=== PATIENT | female | born 1950 | race Caucasian/White ===

== ENCOUNTER → 2016-11-04 | Outpatient (CLI) | payer MEDICARE, BC, OTHER ==
--- NOTE | 2016-11-04 16:39 | REP ---
BILATERAL MAMMOGRAM WITH DIAGNOSTIC MAMMOGRAM LEFT BREAST AND LEFT BREAST ULTRASOUND: Bilateral mammography performed in the MLO and CC projections. Reportedly there is a palpable abnormality in the upper outer quadrant of the left breast, which is marked on the skin with a triangular marker. Additional spot compression views are obtained. Comparison made with prior studies, the most recent of which is 09/29/2015. Parenchymal pattern is unchanged with mild scattered fibroglandular tissue. There is no new mass, architectural distortion or clustered microcalcifications. Real-time sonographic evaluation of the left breast performed at the site of the reported palpable abnormality. No cystic or solid nodule is seen. IMPRESSION: ACR 2 benign. No mass or clustered microcalcifications. There is no mammographic or sonographic evidence of a mass at the site of the reported palpable abnormality in the upper outer quadrant of the left breast. Negative mammogram and ultrasound should not deter biopsy if there is a clinically suspicious palpable mass present. Clinical correlation and followup recommended. Recommend followup mammogram in one year. BI-RADS/ACR category 2 mammogram. Benign finding(s). Routine annual screening mammography (for women over age 40). This mammogram was interpreted with the aid of an FDA-approved computer-aided detection system. The patient states she/he had a clinical breast exam in October 2016. The patient letter being requested is M2. Signed by Ata Schaffer MD 11/05/2016 01:23 P
== END ==
LOC: M RAD 14:46
PROVIDERS: ATTEND Nurse Practitioner Women's Health
DX: N63 Unspecified lump in breast (principal); Z12.4 Encounter for screening for malignant neoplasm of cervix
CPT/HCPCS: 76642; G0101; G0204

== ENCOUNTER → 2016-11-29 | Outpatient (CLI) | payer MEDICARE, BC, OTHER | LOC: M WUC 14:08 | PROVIDERS: ATTEND Psychiatry & Neurology Neurology | DX: E11.9 Type 2 diabetes mellitus without complications (principal) ==

== ENCOUNTER → 2017-11-15 | Outpatient (CLI) | payer MEDICARE, BC | LOC: M WHC 14:25 | DX: Z12.31 Encounter for screening mammogram for malignant neoplasm of breast (principal); Z78.0 Asymptomatic menopausal state; Z92.89 Personal history of other medical treatment; Z80.3 Family history of malignant neoplasm of breast | CPT/HCPCS: 77067 ==

== ENCOUNTER → 2018-01-24 | Outpatient (REF) | payer MEDICARE, OTHER ==
[2018-01-24 17:48] LABS: APPEARANCE, URINE CLEAR (CLEAR); BACTERIA, URINE AUTO NEGATIVE (NEGATIVE); BILIRUBIN, URINE AUTO NEGATIVE (NEGATIVE); BLOOD, URINE BLOOD 2+ (NEGATIVE); COLOR, URINE YELLOW (YELLOW); GLUCOSE, URINE (UA) AUTO NEGATIVE (NEGATIVE); KETONE, URINE AUTO NEGATIVE (NEGATIVE); LEUKOCYTE ESTERASE, URINE AUTO NEGATIVE (NEGATIVE); NITRITE, URINE AUTO NEGATIVE (NEGATIVE); PROTEIN, URINE AUTO NEGATIVE (NEGATIVE); RBC, URINE AUTO 6 /HPF (0-3); SPECIFIC GRAVITY URINE AUTO 1.008 (1.002-1.035); SQUAMOUS EPITHELIAL CELL UR AU 0 /HPF (0-6); UROBILINOGEN, URINE AUTO 0.2 mg/dL (0.0-2.0); WBC, URINE AUTO 0 /HPF (0-3)
== END ==
LOC: M SMT 16:49
DX: R31.9 Hematuria, unspecified (principal)
CPT/HCPCS: 81001

== ENCOUNTER → 2018-02-08 | Outpatient (CLI) | payer MEDICARE, OTHER ==
[2018-02-08 17:21] LABS: ANION GAP 8 MEQ/L (8-16); BLOOD UREA NITROGEN 18 MG/DL (7-18); CALCIUM LEVEL 8.8 MG/DL (8.8-10.2); CARBON DIOXIDE LEVEL 27 MEQ/L (21-32); CHLORIDE LEVEL 107 MEQ/L (98-107); CREATININE FOR GFR 0.79 MG/DL (0.55-1.30); GLOMERULAR FILTRATION RATE > 60.0 (>45); GLUCOSE, FASTING 97 MG/DL (70-100); POTASSIUM SERUM 4.4 MEQ/L (3.5-5.1); SODIUM LEVEL 142 MEQ/L (136-145)
== END ==
LOC: M WUC 11:22
DX: R31.9 Hematuria, unspecified (principal)
CPT/HCPCS: 80048

== ENCOUNTER → 2018-12-08 | Outpatient (CLI) | payer MEDICARE, BC ==
--- NOTE | 2018-12-08 15:46 | REPMRS ---
Patient History The patient states she had a clinical breast exam in 11/2018. Family history of breast cancer at age 50 or over in maternal aunt, breast cancer at age 50 or over in mother, breast cancer in maternal aunt. Benign stereotatic breast biopsy of the left breast, 2002. 3D TOMOSYNTHESIS WAS PERFORMED. Digital Woman Screen Mammo: December 08, 2018 - Exam #: [id number] Bilateral CC and MLO view(s) were taken. Technologist: Yelena Gonzalez, Technologist Prior study comparison: November 15, 2017, digital woman screen mammo performed at [facility]. November 04, 2016, digital mammo diagnostic bilateral, performed at [facility]. FINDINGS: There are scattered fibroglandular densities. There has been no change in the appearance of the mammogram from the prior studies. There is a mild amount of residual fibroglandular tissue which is fairly symmetric. There is no interval development of dominant mass, architectural distortion, or clustered microcalcification suggestive of malignancy. Assessment: BI-RADS/ACR category 1 mammogram. Negative Mammogram. Recommendation Routine screening mammogram in 1 year (for women over age 40). This mammogram was interpreted with the aid of an FDA-approved computer-aided dectection system. Electronically Signed By: Ata Schaffer MD 12/08/18 [id number]
== END ==
LOC: M WHC 14:08
PROVIDERS: ATTEND Nurse Practitioner Women's Health
DX: Z12.31 Encounter for screening mammogram for malignant neoplasm of breast (principal); Z80.3 Family history of malignant neoplasm of breast; Z86.018 Personal history of other benign neoplasm

== ENCOUNTER → 2019-12-11 | Outpatient (CLI) | payer MEDICARE, BC ==
--- NOTE | 2019-12-11 16:22 | REPMRS ---
Patient History The patient states she had a clinical breast exam in November 2019. Family history of breast cancer at age 50 or over in maternal aunt, breast cancer at age 50 or over in mother, breast cancer in maternal aunt. Benign stereotatic breast biopsy of the left breast, 2002. Digital Woman Screen Mammo: December 11, 2019 - Exam #: [id number] Bilateral CC and MLO view(s) were taken. Technologist: Louise Nolan Technologist Prior study comparison: December 08, 2018, bilateral digital woman screen mammo performed at [facility]. November 15, 2017, digital woman screen mammo performed at [facility]. November 04, 2016, digital mammo diagnostic bilateral, performed at [facility]. FINDINGS: There are scattered fibroglandular densities. There has been no change in the appearance of the mammogram from the prior studies. There is a mild amount of scattered fibroglandular density which is fairly symmetric. There is no interval development of dominant mass, architectural distortion, or grouped microcalcification suggestive of malignancy. 3-D tomosynthesis shows no additional findings. Assessment: BI-RADS/ACR category 1 mammogram. Negative Mammogram. Recommendation Routine screening mammogram of both breasts in 1 year (for women over age 40). This patient's Lifetime Breast Cancer Risk is estimated at 9.1 %. This mammogram was interpreted with the aid of an FDA-approved computer-aided dectection system. Electronically Signed By: Nilson Plascencia MD 12/11/19 [id number]
== END ==
LOC: M WHC 15:05
PROVIDERS: ATTEND Nurse Practitioner Women's Health
DX: Z12.31 Encounter for screening mammogram for malignant neoplasm of breast (principal); Z80.3 Family history of malignant neoplasm of breast; Z86.018 Personal history of other benign neoplasm
CPT/HCPCS: 77063; 77067; G0463

== ENCOUNTER → 2020-12-11 | Outpatient (CLI) | payer MEDICARE, BC ==
--- NOTE | 2020-12-11 14:58 | REPMRS ---
Patient History The patient states she had a clinical breast exam in November. Patient is postmenopausal. Family history of breast cancer at age 50 or over in maternal aunt, breast cancer at age 50 or over in mother, breast cancer in maternal aunt, breast cancer at age 69 in sister. Benign stereotatic breast biopsy of the left breast, 2002. No Hormone Replacement Therapy Patient states no breast complaints today. Patient has signed MRS History Sheet. Digital Woman Screen Mammo: December 11, 2020 - Exam #: [id number] Bilateral CC and MLO view(s) were taken. Technologist: Chantale Baxter Med Aide Prior study comparison: December 11, 2019, bilateral digital woman screen mammo performed at [facility]. December 08, 2018, bilateral digital woman screen mammo performed at [facility]. FINDINGS: There are scattered fibroglandular densities. Screening. Digital screening (2D) mammography was performed bilaterally in the CC and MLO projections. Additionally, breast tomosynthesis (3D mammography) was performed bilaterally in the CC and MLO projections. Todays exam was compared to the prior exams(s). By history, the patient has no complaints of a palpable breast abnormality or other significant breast complaints. The breasts are unchanged in size and shape. There are no travis-soft tissue densities or spiculated masses. There is no internal architectural distortion. There are no suspicious travis-calcific clusters. Skin thickening or nipple retraction is not present. IMPRESSION: BI-RADS Category 2- Benign Findings(s). There is no evidence of malignant alteration of the breasts. Followup examination recommended in one year. The Volpara volumetric breast density category is B, there are scattered areas of fibroglandular density. This mammogram was read with the assistance of Peerz,an FDA approved computer aided detection system for mammography. The lifetime Tyrer-Cuzick score is 9.7 % Negative x-ray reports should not delay surgical consultation if a dominant or clinically suspicious mass is present. Not all breast cancers can be identified by mammography. Therefore, we recommend that you continue to perform regular breast self-examination and physical examination and then promptly contact your physician of any concerns or changes. Adenosis and dense breasts may obscure an underlying neoplasm. Assessment: BI-RADS/ACR category 2 mammogram. Benign Findings. Recommendation Routine screening mammogram of both breasts in 1 year. Electronically Signed By: Yassine Almanza DO 12/11/20 [id number]
== END ==
LOC: M WHC 13:28
PROVIDERS: ATTEND Nurse Practitioner Women's Health
DX: Z12.31 Encounter for screening mammogram for malignant neoplasm of breast (principal); Z78.0 Asymptomatic menopausal state; Z80.3 Family history of malignant neoplasm of breast; Z86.018 Personal history of other benign neoplasm
CPT/HCPCS: 77063; 77067; G0463

== ENCOUNTER → 2021-01-08 | Outpatient (CLI) | payer MEDICARE, BC ==
--- NOTE | 2021-01-08 15:33 | REP ---
INDICATION: SOB COMPARISON: None. TECHNIQUE: Single frontal radiograph of the chest. FINDINGS: The mediastinum and cardiac silhouette are normal. The lung sherman are clear and without acute consolidation, effusion, or pneumothorax. The skeletal structures are intact and normal. IMPRESSION: No acute cardiopulmonary process. <Electronically signed by Evangelista Leo > 01/08/21 2014
== END ==
LOC: M WUC 15:14
PROVIDERS: ATTEND Physician Assistant
DX: R06.02 Shortness of breath (principal)

== ENCOUNTER → 2021-11-30 | Outpatient (CLI) | payer MEDICARE, BC, OTHER | LOC: M RAD 15:02 | PROVIDERS: ATTEND Physician Assistant | DX: Z12.2 Encounter for screening for malignant neoplasm of respiratory organs (principal); F17.210 Nicotine dependence, cigarettes, uncomplicated; R91.8 Other nonspecific abnormal finding of lung field ==

== ENCOUNTER → 2021-11-30 | Outpatient (REF) | payer MEDICARE, BC, OTHER | LOC: M SFHCDERM 17:29 | PROVIDERS: ATTEND Nurse Practitioner Family | DX: L82.1 Other seborrheic keratosis (principal); L57.8 Other skin changes due to chronic exposure to nonionizing radiation ==

== ENCOUNTER → 2022-01-06 | Outpatient (CLI) | payer MEDICARE, BC, OTHER | LOC: M WHC 13:47 | PROVIDERS: ATTEND Physician Assistant | DX: Z12.31 Encounter for screening mammogram for malignant neoplasm of breast (principal) ==

== ENCOUNTER → 2022-02-12 | Outpatient (REF) | payer MEDICARE, OTHER | LOC: M SFHCDERM 16:18 | PROVIDERS: ATTEND Nurse Practitioner Family | DX: D23.5 Other benign neoplasm of skin of trunk (principal) ==

== ENCOUNTER → 2022-03-11 | Outpatient (REF) | payer MEDICARE, OTHER | LOC: M PLALAB 14:54 | PROVIDERS: ATTEND Nurse Practitioner Family | DX: Z12.4 Encounter for screening for malignant neoplasm of cervix (principal); R87.610 Atypical squamous cells of undetermined significance on cytologic smear of cervix (ASC-US) | CPT/HCPCS: 87624; G0123 ==

== ENCOUNTER → 2022-03-30 | Outpatient (CLI) | payer MEDICARE, BC, OTHER | LOC: M WHC 12:42 | PROVIDERS: ATTEND Nurse Practitioner Family | DX: N93.9 Abnormal uterine and vaginal bleeding, unspecified (principal) ==

== ENCOUNTER → 2022-04-20 | Outpatient (REF) | payer MEDICARE, OTHER | LOC: M PLALAB 16:06 | PROVIDERS: ATTEND Obstetrics & Gynecology | DX: N95.0 Postmenopausal bleeding (principal) ==

== ENCOUNTER → 2022-08-13 | Outpatient (CLI) | payer MEDICARE, OTHER ==
[2022-08-13 19:39] LABS: ALBUMIN 3.7 G/DL (3.2-5.2); ALKALINE PHOSPHATASE 73 U/L (46-116); ALT/SGPT 15 U/L (7.0-40); AST/SGOT 18 U/L (<34); BILIRUBIN,TOTAL 0.4 MG/DL (0.3-1.2); BLOOD UREA NITROGEN 15 MG/DL (9-23); CALCIUM LEVEL 9.6 MG/DL (8.3-10.6); CARBON DIOXIDE LEVEL 24 MMOL/L (20-31); CHLORIDE LEVEL 105 MMOL/L (98-107); CHOLESTEROL LEVEL 166 MG/DL (<200); CHOLESTEROL RISK RATIO 3.65 (<5); CREATININE FOR GFR 0.71 MG/DL (0.55-1.30); GLOMERULAR FILTRATION RATE > 60.0 (>39); GLUCOSE, FASTING 89 MG/DL (74-106); HDL CHOLESTEROL 45.4 MG/DL (>40); LDL CHOLESTEROL 79.8 MG/DL (<100); NON-HDL-C 121 MG/DL; POTASSIUM SERUM 4.4 MMOL/L (3.5-5.1); SODIUM LEVEL 140 MMOL/L (136-145); TOTAL PROTEIN 6.6 G/DL (5.7-8.2); TRIGLYCERIDES LEVEL 204 MG/DL (<150)
[2022-08-13 21:00] LABS: HEMOGLOBIN A1c 5.6 % (4.0-6.0)
== END ==
LOC: M WUC 15:10
PROVIDERS: ATTEND Physician Assistant
DX: I10 Essential (primary) hypertension (principal); E78.5 Hyperlipidemia, unspecified; R73.01 Impaired fasting glucose

== ENCOUNTER → 2023-02-04 | Outpatient (CLI) | payer MEDICARE, OTHER ==
[2023-02-04 17:10] LABS: ALKALINE PHOSPHATASE 78 U/L (46-116); ALT/SGPT 16 U/L (7.0-40); AST/SGOT 16 U/L (<34); BILIRUBIN,TOTAL 0.5 MG/DL (0.3-1.2); BLOOD UREA NITROGEN 16 MG/DL (9-23); CALCIUM LEVEL 9.2 MG/DL (8.3-10.6); CARBON DIOXIDE LEVEL 24 MMOL/L (20-31); CHLORIDE LEVEL 107 MMOL/L (98-107); CHOLESTEROL LEVEL 169 MG/DL (<200); CHOLESTEROL RISK RATIO 3.82 (<5); CREATININE FOR GFR 0.78 MG/DL (0.55-1.30); GLOMERULAR FILTRATION RATE > 60.0 (>39); GLUCOSE, FASTING 98 MG/DL (74-106); HDL CHOLESTEROL 44.2 MG/DL (>40); LDL CHOLESTEROL 86.4 MG/DL (<100); NON-HDL-C 124.8 MG/DL; POTASSIUM SERUM 4.6 MMOL/L (3.5-5.1); SODIUM LEVEL 139 MMOL/L (136-145); TOTAL PROTEIN 6.7 G/DL (5.7-8.2); TRIGLYCERIDES LEVEL 192 MG/DL (<150)
[2023-02-04 17:11] LABS: THYROID STIMULATING HORMONE 0.889 uIU/ML (0.55-4.78)
== END ==
LOC: M WUC 13:32
PROVIDERS: ATTEND Physician Assistant
DX: I10 Essential (primary) hypertension (principal); E78.5 Hyperlipidemia, unspecified

== ENCOUNTER → 2023-03-24 | Outpatient (REF) | payer MEDICARE, BC, OTHER | LOC: M SFHCWAGY 17:45 | PROVIDERS: ATTEND Nurse Practitioner Family | DX: Z12.4 Encounter for screening for malignant neoplasm of cervix (principal) | CPT/HCPCS: 87624; G0123 ==

== ENCOUNTER → 2023-03-24 | Outpatient (CLI) | payer MEDICARE, BC, OTHER | LOC: M WHC 14:37 | PROVIDERS: ATTEND Nurse Practitioner Family | DX: Z12.31 Encounter for screening mammogram for malignant neoplasm of breast (principal) ==

== ENCOUNTER → 2023-04-05 | Outpatient (CLI) | payer MEDICARE, BC, OTHER | LOC: M WHC 12:51 | PROVIDERS: ATTEND Nurse Practitioner Family | DX: N95.0 Postmenopausal bleeding (principal) ==

== ENCOUNTER → 2023-08-26 | Outpatient (CLI) | payer MEDICARE, BC, OTHER ==
[2023-08-26 16:35] LABS: HEMATOCRIT 45.4 % (36.0-47.0); HEMOGLOBIN 14.9 g/dl (12.0-15.5); MEAN CORPUSCULAR HEMOGLOBIN 30.4 pg (27.0-33.0); MEAN CORPUSCULAR HGB CONC 32.8 g/dl (32.0-36.5); MEAN CORPUSCULAR VOLUME 92.7 fl (80.0-96.0); PLATELET COUNT, AUTOMATED 309 10^3/uL (150-450); WHITE BLOOD COUNT 9.5 10^3/uL (4.0-10.0)
[2023-08-26 16:41] LABS: ALBUMIN 3.7 G/DL (3.2-5.2); ALKALINE PHOSPHATASE 73 U/L (46-116); ALT/SGPT 19 U/L (7.0-40); AST/SGOT 19 U/L (<34); BILIRUBIN,TOTAL 0.4 MG/DL (0.3-1.2); BLOOD UREA NITROGEN 18 MG/DL (9-23); CALCIUM LEVEL 9.2 MG/DL (8.3-10.6); CARBON DIOXIDE LEVEL 28 MMOL/L (20-31); CHLORIDE LEVEL 105 MMOL/L (98-107); CHOLESTEROL LEVEL 179 MG/DL (<200); CHOLESTEROL RISK RATIO 3.37 (<5); CREATININE FOR GFR 0.69 MG/DL (0.55-1.30); GLOMERULAR FILTRATION RATE > 60.0 (>39); GLUCOSE, FASTING 103 MG/DL (74-106); LDL CHOLESTEROL 87.6 MG/DL (<100); POTASSIUM SERUM 4.8 MMOL/L (3.5-5.1); SODIUM LEVEL 139 MMOL/L (136-145); TOTAL PROTEIN 6.5 G/DL (5.7-8.2); TRIGLYCERIDES LEVEL 192 MG/DL (<150)
[2023-08-26 17:00] LABS: HEMOGLOBIN A1c 5.8 % (4.0-6.0)
== END ==
LOC: M WUC 12:23
PROVIDERS: ATTEND Physician Assistant
DX: I10 Essential (primary) hypertension (principal); E78.5 Hyperlipidemia, unspecified; R73.01 Impaired fasting glucose

== ENCOUNTER 2023-10-05 11:04 | Emergency (ER) | payer MEDICARE, BC, OTHER ==
[~2023-10-05] VITALS: Ht 175.3 cm; Wt 102.7 kg
[2023-10-05] MEDS ORDERED: PRAV80TA2 PO (11:14)
[2023-10-05] MEDS ORDERED: METO1TAB32 PO (11:14)
[2023-10-05] MEDS ORDERED: CYCL-707 PO (11:14)
[2023-10-05] MEDS ORDERED: GABA-282 PO (11:14)
[2023-10-05] MEDS ORDERED: LISI20TA33 PO (11:14)
[2023-10-05] MEDS: ASPIRIN 81MG CHEW TABLET PO ONE (12:49)
[2023-10-05 13:16] LABS: BASO % 0.3 % (0.0-1.0); EOS # 0.1 10^3/uL (0.0-0.5); EOS % 1.1 % (0.0-3.0); HEMATOCRIT 47.1 % (36.0-47.0); HEMOGLOBIN 15.7 g/dl (12.0-15.5); LYMPH # 3.1 10^3/uL (1.5-5.0); LYMPH % 24.4 % (24.0-44.0); MEAN CORPUSCULAR HEMOGLOBIN 30.7 pg (27.0-33.0); MEAN CORPUSCULAR HGB CONC 33.3 g/dl (32.0-36.5); MONO # 1.1 10^3/uL (0.0-0.8); MONO % 8.6 % (2.0-8.0); NEUTROPHILS # 8.3 10^3/uL (1.5-8.5); NEUTROPHILS % 65.3 % (36.0-66.0); PLATELET COUNT, AUTOMATED 300 10^3/uL (150-450); RED BLOOD COUNT 5.12 10^6/uL (4.00-5.40); WHITE BLOOD COUNT 12.6 10^3/uL (4.0-10.0)
[2023-10-05 13:17] LABS: VENOUS BASE EXCESS 0.5 (-2.0-2.0); VENOUS HCO3 26.4 MMOL/L (23.0-27.0); VENOUS O2 SATURATION 66.8 % (60.0-80.0); VENOUS PARTIAL PRESSURE CO2 46.7 mmHg (38.0-50.0); VENOUS PARTIAL PRESSURE O2 32.6 mmHg (30.0-50.0); VENOUS STANDARD HCO3 24.1 MMOL/L; VENOUS TOTAL CO2 27.8 MMOL/L (24.0-28.0)
[2023-10-05 13:45] LABS: ERYTHROCYTE SEDIMENTATION RATE 57 mm/hr (0-30)
[2023-10-05 13:48] LABS: ALBUMIN 3.7 G/DL (3.2-5.2); ALKALINE PHOSPHATASE 82 U/L (46-116); ALT/SGPT 18 U/L (7.0-40); AST/SGOT 17 U/L (<34); BILIRUBIN,DIRECT 0.2 MG/DL (<0.4); BILIRUBIN,TOTAL 0.6 MG/DL (0.3-1.2); BLOOD UREA NITROGEN 16 MG/DL (9-23); CARBON DIOXIDE LEVEL 27 MMOL/L (20-31); CHLORIDE LEVEL 104 MMOL/L (98-107); CK-MB VALUE MASS < 1.0 NG/ML (<3.6); GLOMERULAR FILTRATION RATE > 60.0 (>39); GLUCOSE, FASTING 109 MG/DL (74-106); POTASSIUM SERUM 4.1 MMOL/L (3.5-5.1); SODIUM LEVEL 138 MMOL/L (136-145); TOTAL PROTEIN 6.8 G/DL (5.7-8.2)
[2023-10-05 14:11] LABS: CPK CREATINE PHOSPHOKINASE 106 U/L (34-145); MB/CK RELATIVE INDEX 0.94 (< OR =4)
[2023-10-05 14:37] LABS: CK-MB VALUE MASS < 1.0 NG/ML (<3.6)
[2023-10-05 14:38] LABS: CPK CREATINE PHOSPHOKINASE 83 U/L (34-145)
[2023-10-05] MEDS: AZITHROMYCIN 250MG TABLET PO ONE (14:52)
[2023-10-05] MEDS ORDERED: ISOVUE-370 76% 100ML VIAL As Ordered ONE (15:23)
[2023-10-05] MEDS ORDERED: DOXYCYCLINE HYCLATE 100MG TABLET PO ONE (16:45)
[2023-10-05] MEDS: cefTRIAXone SOD 1 GM in D5W MINI-BAG PLUS 50 ML IV ONE (17:02)
[2023-10-05 17:41] VITALS: O2SAT 95
[2023-10-05] MEDS ORDERED: VENTAER INH (17:49)
[2023-10-05] MEDS ORDERED: DOXY-443 PO (17:49)
[2023-10-05 18:30] VITALS: BP 130/73; TEMP 98.1; O2SAT 97
== END 2023-10-05 18:32 | disposition home or self-care (01) ==
LOC: M ED 11:04
DX: J18.9 Pneumonia, unspecified organism (principal); R06.02 Shortness of breath; I10 Essential (primary) hypertension; E78.5 Hyperlipidemia, unspecified; F17.200 Nicotine dependence, unspecified, uncomplicated; Z79.899 Other long term (current) drug therapy
CPT/HCPCS: 71045; 71275; 80048; 80076; 82550; 82553; 82803; 83880; 84484; 85025; 85379; 85652; 86140; 93005; 93041; 94760; 96365; 99285; J0696; Q9967

== ENCOUNTER → 2024-05-21 | Outpatient (CLI) | payer MEDICARE, BC ==
[~2024-05-21] MED LIST: CYCL-707 PO; DOXY-441 PO; GABA-1172 PO; LISI20TA33 PO; METO1TAB32 PO; PRAV80TA2 PO; VENTAER INH
== END ==
LOC: M WHC 15:07
PROVIDERS: ATTEND Physician Assistant
DX: Z12.31 Encounter for screening mammogram for malignant neoplasm of breast (principal)

== ENCOUNTER → 2024-06-08 | Outpatient (CLI) | payer MEDICARE, BC ==
[2024-06-08 19:32] LABS: HEMATOCRIT 46.5 % (36.0-47.0); HEMOGLOBIN 15.6 g/dl (12.0-15.5); MEAN CORPUSCULAR HEMOGLOBIN 31.1 pg (27.0-33.0); MEAN CORPUSCULAR HGB CONC 33.5 g/dl (32.0-36.5); MEAN CORPUSCULAR VOLUME 92.6 fl (80.0-96.0); PLATELET COUNT, AUTOMATED 291 10^3/uL (150-450); RED BLOOD COUNT 5.02 10^6/uL (4.00-5.40)
[2024-06-08 20:02] LABS: ALBUMIN 3.7 G/DL (3.2-5.2); ALKALINE PHOSPHATASE 76 U/L (35-104); ALT/SGPT 16 U/L (7.0-40); AST/SGOT 14 U/L (<34); BILIRUBIN,TOTAL 0.4 MG/DL (0.3-1.2); BLOOD UREA NITROGEN 17 MG/DL (9-23); CALCIUM LEVEL 9.5 MG/DL (8.3-10.6); CARBON DIOXIDE LEVEL 25 MMOL/L (20-31); CHLORIDE LEVEL 108 MMOL/L (98-107); CHOLESTEROL LEVEL 184 MG/DL (<200); CHOLESTEROL RISK RATIO 3.58 (<5); CREATININE FOR GFR 0.71 MG/DL (0.55-1.30); GLOMERULAR FILTRATION RATE > 60.0 (>39); GLUCOSE, FASTING 90 MG/DL (74-106); HDL CHOLESTEROL 51.3 MG/DL (>40); LDL CHOLESTEROL 99.5 MG/DL (<100); NON-HDL-C 132.7 MG/DL; POTASSIUM SERUM 4.5 MMOL/L (3.5-5.1); SODIUM LEVEL 141 MMOL/L (136-145); TOTAL PROTEIN 6.8 G/DL (5.7-8.2); TRIGLYCERIDES LEVEL 166 MG/DL (<150)
[2024-06-08 20:03] LABS: THYROID STIMULATING HORMONE 0.895 uIU/ML (0.55-4.78)
[2024-06-08 20:47] LABS: HEMOGLOBIN A1c 5.8 % (4.0-6.0)
[2024-06-11 06:53] LABS: WHITE BLOOD COUNT 9.4 10^3/uL (4.0-10.0)
== END ==
LOC: M WUC 14:51
PROVIDERS: ATTEND Physician Assistant
DX: E78.5 Hyperlipidemia, unspecified (principal); R73.01 Impaired fasting glucose; I10 Essential (primary) hypertension

== ENCOUNTER → 2025-05-22 | Outpatient (CLI) | payer MEDICARE, BC ==
[~2025-05-22] MED LIST changes: -PRAV80TA2 PO; +PRAV80TA75 PO
== END ==
LOC: M WHC 14:40
PROVIDERS: ATTEND Physician Assistant
DX: Z12.31 Encounter for screening mammogram for malignant neoplasm of breast (principal); R92.313 Mammographic fatty tissue density, bilateral breasts

== ENCOUNTER → 2025-08-05 | Outpatient (CLI) | payer MEDICARE, BC ==
[2025-08-05 18:54] LABS: ALT/SGPT 20 U/L (7.0-40); AST/SGOT 23 U/L (<34); CALCIUM LEVEL 9.2 MG/DL (8.3-10.6); CARBON DIOXIDE LEVEL 23 MMOL/L (20-31); CHLORIDE LEVEL 107 MMOL/L (98-107); CHOLESTEROL LEVEL 177 MG/DL (<200); CHOLESTEROL RISK RATIO 3.82 (<5); CREATININE FOR GFR 0.65 MG/DL (0.55-1.30); GLOMERULAR FILTRATION RATE > 90.0 (>39); LDL CHOLESTEROL 78.7 MG/DL (<100); NON-HDL-C 130.7 MG/DL; POTASSIUM SERUM 4.4 MMOL/L (3.5-5.1); SODIUM LEVEL 139 MMOL/L (136-145); TRIGLYCERIDES LEVEL 260 MG/DL (<150)
[2025-08-05 19:18] LABS: ESTIMATED AVERAGE GLUCOSE 120.0 MG/DL (60-110); PLATELET COUNT, AUTOMATED 318 10^3/uL (150-450)
== END ==
LOC: M WUC 12:33
PROVIDERS: ATTEND Physician Assistant
DX: E78.2 Mixed hyperlipidemia (principal); I10 Essential (primary) hypertension; R73.01 Impaired fasting glucose; R35.1 Nocturia